=== PATIENT | male | born 1945 | race Caucasian/White ===

== ENCOUNTER 2021-05-12 09:44 | Inpatient (IN) | payer OTHER ==
[2021-05-12] MEDS ORDERED: ACETAMINOPHEN 1000 MG/100 ML VIAL (NON FORMULARY) IVPB ONE ×2 (10:53)
[2021-05-12 11:30] LABS: VENOUS BASE EXCESS -6.9 mmol/L (-2-2); VENOUS O2 SATURATION 19.3 % (70-80); VENOUS PCO2 34.4 mmHg (38-52); VENOUS PH 7.337 (7.310-7.410)
[2021-05-12 11:44] LABS: BASO % 0.2 % (0-2.0); EOS % 0.1 % (0-4.5); HEMATOCRIT 28.8 % (35.4-49); HEMOGLOBIN 9.7 GM/dL (11.7-16.9); LYMPH % 27.9 % (8-40); MCH 30.1 pg (25.7-33.7); MCHC 33.8 g/dl (32.0-35.9); MEAN CELL VOLUME 89.1 fl (80-96); MEAN PLT VOLUME 9.9 fl (7.5-11.1); MONO % 8.2 % (3.8-10.2); NEUT % 63.6 % (42.8-82.8); PLATELET COUNT 79 10^3/uL (134-434); RBC 3.23 M/mm3 (4.00-5.60); RDW 16.3 % (11.9-15.9)
[2021-05-12 11:47] LABS: INR 1.36 (0.83-1.09); PROTHROMBIN TIME (PATIENT) 16.3 SEC (9.7-13.0)
[2021-05-12 11:49] LABS: WHITE BLOOD COUNT 1.7 K/mm3 (4.0-10.0)
[2021-05-12 11:50] LABS: ACTIVATED PTT 31.3 SECONDS (25.2-36.5)
[2021-05-12] MEDS ORDERED: AZITHROMYCIN IVPB 500 MG in DEXTROSE 5%-WATER - 250 ML IVPB ONE (11:51)
[2021-05-12] MEDS ORDERED: CEFTRIAXONE 1 GM in DEXTROSE 5%-WATER - 100 ML IVPB ONE (11:51)
[2021-05-12 12:04] LABS: ALBUMIN 2.2 g/dl (3.4-5.0); BLOOD UREA NITROGEN 61.5 mg/dL (7-18); CALCIUM 7.3 mg/dL (8.5-10.1)
[2021-05-12 12:06] LABS: BILIRUBIN,DIRECT 0.3 mg/dL (0.0-0.2)
[2021-05-12 12:09] LABS: BILIRUBIN,TOTAL 0.6 mg/dL (0.2-1); TOT PROT 4.6 g/dl (6.4-8.2)
[2021-05-12 12:13] LABS: ANISOCYTOSIS 1+; MACROCYTOSIS 1+; PLATELET ESTIMATE DECREASED
[2021-05-12] MEDS ORDERED: CEFTRIAXONE 1 GM/50 ML BAG ONE (12:34)
[2021-05-12 13:12] LABS: MAGNESIUM 2.2 mg/dL (1.8-2.4)
[2021-05-12 13:16] LABS: PHOSPHOROUS 3.5 mg/dL (2.5-4.9)
[2021-05-12 13:20] LABS: N-TERMINAL BNP 14544.6 pg/ml (5-125)
[2021-05-12] MEDS ORDERED: DEXAMETHASONE SOD PHOSPHATE 10 MG/1 ML VIAL IVPUSH ONE (13:37)
[2021-05-12] MEDS ORDERED: AZITHROMYCIN IVPB 500 MG/250 ML BAG IVPB ONE (14:03)
[2021-05-12] MEDS ORDERED: DEXAMETHASONE SOD PHOSPHATE 10 MG/1 ML VIAL ONE (14:06)
[2021-05-12] MEDS: LIPASE/PROTEASE/AMYLASE 36,000 UNIT CAPSULE PO SCH (18:40)
[2021-05-12] MEDS ORDERED: APIXABAN 5 MG TABLET PO SCH (22:00)
[2021-05-12] MEDS ORDERED: ZOLPIDEM TARTRATE 5 MG TABLET PO PRN (22:00)
[2021-05-12] MEDS ORDERED: PATIENT'S OWN MEDICATION (NON-FORMULARY) (Icosapent Ethyl [Vascepa] 1 GM Capsule) PO SCH (22:00)
[2021-05-12] MEDS ORDERED: ASCORBIC ACID 500 MG TABLET (FP) ONE (22:05)
[2021-05-12] MEDS ORDERED: APIXABAN 5 MG TABLET ONE (22:05)
[2021-05-12] MEDS ORDERED: ZINC SULFATE 220 MG CAPSULE (FP) ONE (22:06)
[2021-05-12] MEDS ORDERED: GABAPENTIN 100 MG CAPSULE ONE (22:06)
[2021-05-12] MEDS ORDERED: MECLIZINE HCL 25 MG TABLET (FP) ONE (22:06)
[2021-05-12] MEDS: ASCORBIC ACID 500 MG TABLET (FP) PO SCH (22:15)
[2021-05-12] MEDS: MECLIZINE HCL 25 MG TABLET (FP) PO SCH (22:15)
[2021-05-12] MEDS: GABAPENTIN 100 MG CAPSULE PO SCH (22:15)
[2021-05-12] MEDS: ZINC SULFATE 220 MG CAPSULE (FP) PO SCH (22:15)
[2021-05-12] MEDS: INSULIN SLIDING SCALE (NOVOLOG) 1 VIAL SQ SCH (22:16)
[2021-05-12] MEDS ORDERED: INSULIN SLIDING SCALE (NOVOLOG) 1 VIAL SQ ONE (22:17)
[2021-05-12 22:24] LABS: EPI CELLS 4 /uL (0-25.1); HYALINE CASTS 4 /uL (0-3.1); URINE APPEARANCE CLEAR; URINE BACTERIA 2 /uL (0-1359); URINE BILIRUBIN NEGATIVE (NEGATIVE); URINE COLOR YELLOW; URINE GLUCOSE (UA) NEGATIVE (NEGATIVE); URINE KETONE NEGATIVE (NEGATIVE); URINE LEUK ESTERASE NEGATIVE (NEGATIVE); URINE NITRITE NEGATIVE (NEGATIVE); URINE PROTEIN TRACE (NEGATIVE); URINE UROBILINOGEN 0.2 mg/dL (0.2-1.0); URINE WBC 7 /uL (0-25.8)
[2021-05-12 22:27] LABS: URINE RBC 136.1 /uL (0-23.9)
[2021-05-13] MEDS: BUDESONIDE/FORMETEROL FUMARATE 160/4.5 mcg INHALER IH SCH ×3 (02:19→22:09)
[2021-05-13] MEDS: MEMANTINE HCL 5 MG TABLET (UD) PO SCH ×3 (02:19→22:09)
[2021-05-13] MEDS: GABAPENTIN 100 MG CAPSULE PO SCH ×3 (06:19→22:09)
[2021-05-13] MEDS: INSULIN SLIDING SCALE (NOVOLOG) 1 VIAL SQ SCH ×4 (06:23→22:15)
[2021-05-13 07:34] LABS: BASO % 0.1 % (0-2.0); HEMOGLOBIN 10.1 GM/dL (11.7-16.9); LYMPH % 28.2 % (8-40); MCH 29.8 pg (25.7-33.7); MCHC 33.7 g/dl (32.0-35.9); MEAN CELL VOLUME 88.4 fl (80-96); MEAN PLT VOLUME 9.7 fl (7.5-11.1); MONO % 8.4 % (3.8-10.2); NEUT % 63.3 % (42.8-82.8); PLATELET COUNT 87 10^3/uL (134-434); RBC 3.39 M/mm3 (4.00-5.60); RDW 16.4 % (11.9-15.9)
[2021-05-13 07:39] LABS: WHITE BLOOD COUNT 1.3 K/mm3 (4.0-10.0)
[2021-05-13 08:04] LABS: ALBUMIN 2.1 g/dl (3.4-5.0); BLOOD UREA NITROGEN 64.8 mg/dL (7-18); CALCIUM 7.8 mg/dL (8.5-10.1); MAGNESIUM 2.3 mg/dL (1.8-2.4)
[2021-05-13 08:07] LABS: CREATININE 2.9 mg/dL (0.55-1.3)
[2021-05-13 08:08] LABS: BILIRUBIN,TOTAL 0.4 mg/dL (0.2-1); TOT PROT 4.7 g/dl (6.4-8.2)
[2021-05-13 09:35] LABS: ANISOCYTOSIS 2+
[2021-05-13 09:36] LABS: MACROCYTOSIS 1+; OVALOCYTE 2+
[2021-05-13] MEDS ORDERED: DIGOXIN 0.125 MG TABLET PO SCH (10:00)
[2021-05-13] MEDS ORDERED: CEFEPIME 2 GM in DEXTROSE 5%-WATER 100 ML IVPB SCH (10:00)
[2021-05-13] MEDS ORDERED: ASPIRIN COATED 81 MG TABLET.EC PO SCH (10:00)
[2021-05-13] MEDS ORDERED: POTASSIUM CHLORIDE TABS 10 MEQ TABLET.ER (FP) PO SCH (10:00)
[2021-05-13] MEDS ORDERED: PT OWN MED DRAWER 7, Y5N ONE ×5 (10:25→21:46)
[2021-05-13] MEDS: DEXAMETHASONE SOD PHOSPHATE 10 MG/1 ML VIAL IVPUSH SCH (10:29)
[2021-05-13] MEDS: MECLIZINE HCL 25 MG TABLET (FP) PO SCH ×2 (10:29→22:09)
[2021-05-13] MEDS: ASCORBIC ACID 500 MG TABLET (FP) PO SCH ×2 (10:29→22:09)
[2021-05-13] MEDS: ROSUVASTATIN CA 10 MG TABLET (FP) PO SCH (10:29)
[2021-05-13] MEDS: ZINC SULFATE 220 MG CAPSULE (FP) PO SCH ×2 (10:30→22:09)
[2021-05-13] MEDS: ALLOPURINOL 100 MG TABLET (FP) PO SCH (10:30)
[2021-05-13] MEDS: PANTOPRAZOLE 40 MG TABLET PO SCH (10:30)
[2021-05-13] MEDS: LORATADINE 10 MG TABLET PO SCH (10:30)
[2021-05-13] MEDS: SERTRALINE HCL 25 MG TABLET (FP) PO SCH (10:30)
[2021-05-13] MEDS ORDERED: SODIUM ZIRCONIUM CYCLOSILICATE (LOKELMA) 5 GM PACKET PO SCH (11:00)
[2021-05-13] MEDS: LIPASE/PROTEASE/AMYLASE 36,000 UNIT CAPSULE PO SCH ×3 (12:56→19:07)
[2021-05-13] MEDS: TOLTERODINE TARTRATE LA 2 MG CAP.SR.24H PO SCH (12:58)
[2021-05-13] MEDS: CHOLECALCIFEROL (VIT D3) 5000 UNITS (125 MCG) CAP PO SCH (12:58)
[2021-05-13] MEDS: HEPARIN NA (PORCINE) 5,000 UNITS/ML 1ML VIAL SQ SCH ×2 (14:15→22:09)
[2021-05-14] MEDS: GABAPENTIN 100 MG CAPSULE PO SCH ×3 (06:17→21:26)
[2021-05-14] MEDS: HEPARIN NA (PORCINE) 5,000 UNITS/ML 1ML VIAL SQ SCH ×3 (06:17→21:26)
[2021-05-14] MEDS: INSULIN SLIDING SCALE (NOVOLOG) 1 VIAL SQ SCH ×4 (06:21→21:27)
[2021-05-14 07:58] LABS: BASO % 0.1 % (0-2.0); HEMATOCRIT 30.2 % (35.4-49); HEMOGLOBIN 10.3 GM/dL (11.7-16.9); LYMPH % 19.9 % (8-40); MCH 30.3 pg (25.7-33.7); MCHC 34.2 g/dl (32.0-35.9); MEAN CELL VOLUME 88.7 fl (80-96); MEAN PLT VOLUME 9.7 fl (7.5-11.1); MONO % 5.8 % (3.8-10.2); NEUT % 74.2 % (42.8-82.8); PLATELET COUNT 117 10^3/uL (134-434); RBC 3.41 M/mm3 (4.00-5.60); RDW 16.5 % (11.9-15.9); WHITE BLOOD COUNT 2.5 K/mm3 (4.0-10.0)
[2021-05-14 08:14] LABS: CALCIUM 7.8 mg/dL (8.5-10.1)
[2021-05-14 08:15] LABS: ALBUMIN 2.1 g/dl (3.4-5.0); BLOOD UREA NITROGEN 76.8 mg/dL (7-18); MAGNESIUM 2.5 mg/dL (1.8-2.4)
[2021-05-14 08:18] LABS: CREATININE 3.1 mg/dL (0.55-1.3)
[2021-05-14 08:19] LABS: BILIRUBIN,TOTAL 0.5 mg/dL (0.2-1); TOT PROT 4.8 g/dl (6.4-8.2)
[2021-05-14] MEDS ORDERED: CEFEPIME 2 GM in DEXTROSE 5%-WATER 100 ML IVPB SCH (10:00)
[2021-05-14] MEDS ORDERED: CEFEPIME 1 GM in DEXTROSE 5%-WATER - 100 ML IVPB SCH (10:00)
[2021-05-14] MEDS: BUDESONIDE/FORMETEROL FUMARATE 160/4.5 mcg INHALER IH SCH ×2 (10:30→21:44)
[2021-05-14] MEDS ORDERED: SODIUM ZIRCONIUM CYCLOSILICATE (LOKELMA) 5 GM PACKET PO SCH (10:45)
[2021-05-14] MEDS ORDERED: SODIUM CHLORIDE 0.45% 1,000 ML IV SCH (10:45)
[2021-05-14] MEDS ORDERED: PT OWN MED DRAWER 7, Y5N ONE ×6 (10:57→21:21)
[2021-05-14] MEDS: LIPASE/PROTEASE/AMYLASE 36,000 UNIT CAPSULE PO SCH ×3 (11:02→18:40)
[2021-05-14] MEDS: SODIUM BICARBONATE 650 MG TABLET PO SCH ×2 (11:02→21:26)
[2021-05-14] MEDS: PANTOPRAZOLE 40 MG TABLET PO SCH (11:02)
[2021-05-14] MEDS: SERTRALINE HCL 25 MG TABLET (FP) PO SCH (11:02)
[2021-05-14] MEDS: ASCORBIC ACID 500 MG TABLET (FP) PO SCH ×2 (11:02→21:26)
[2021-05-14] MEDS: TAMSULOSIN HCL 0.4 MG CAP PO SCH (11:02)
[2021-05-14] MEDS: ZINC SULFATE 220 MG CAPSULE (FP) PO SCH ×2 (11:02→21:26)
[2021-05-14] MEDS: ALLOPURINOL 100 MG TABLET (FP) PO SCH (11:02)
[2021-05-14] MEDS: ROSUVASTATIN CA 10 MG TABLET (FP) PO SCH (11:02)
[2021-05-14] MEDS: LORATADINE 10 MG TABLET PO SCH (11:03)
[2021-05-14] MEDS: MECLIZINE HCL 25 MG TABLET (FP) PO SCH ×2 (11:03→21:26)
[2021-05-14] MEDS: SACUBITRIL/VALSARTAN 24 MG-26 MG TABLET PO SCH ×2 (11:03→21:26)
[2021-05-14] MEDS: MEMANTINE HCL 5 MG TABLET (UD) PO SCH ×2 (11:03→21:27)
[2021-05-14] MEDS: TOLTERODINE TARTRATE LA 2 MG CAP.SR.24H PO SCH (11:03)
[2021-05-14] MEDS: DEXAMETHASONE SOD PHOSPHATE 10 MG/1 ML VIAL IVPUSH SCH (11:03)
[2021-05-14] MEDS: CHOLECALCIFEROL (VIT D3) 5000 UNITS (125 MCG) CAP PO SCH (11:04)
[2021-05-14] MEDS ORDERED: CEFEPIME HCL 1 GM VIAL (RESTRICTED TO ID) ONE (21:17)
[2021-05-14] MEDS ORDERED: DEXTROSE 5%-WATER 100 ML IVPB ONE (21:17)
[2021-05-14] MEDS: CEFEPIME 1 GM in DEXTROSE 5%-WATER 100 ML IVPB SCH (21:25)
[2021-05-15] MEDS: HEPARIN NA (PORCINE) 5,000 UNITS/ML 1ML VIAL SQ SCH ×3 (06:01→21:28)
[2021-05-15] MEDS: INSULIN SLIDING SCALE (NOVOLOG) 1 VIAL SQ SCH ×4 (06:02→21:28)
[2021-05-15] MEDS: GABAPENTIN 100 MG CAPSULE PO SCH ×3 (06:02→21:28)
[2021-05-15 08:01] LABS: BASO % 0.1 % (0-2.0); HEMATOCRIT 30.6 % (35.4-49); HEMOGLOBIN 10.2 GM/dL (11.7-16.9); MCH 29.5 pg (25.7-33.7); MCHC 33.3 g/dl (32.0-35.9); MEAN CELL VOLUME 88.6 fl (80-96); MEAN PLT VOLUME 9.3 fl (7.5-11.1); MONO % 4.8 % (3.8-10.2); NEUT % 77.1 % (42.8-82.8); PLATELET COUNT 132 10^3/uL (134-434); RBC 3.46 M/mm3 (4.00-5.60); RDW 16.5 % (11.9-15.9); WHITE BLOOD COUNT 3.2 K/mm3 (4.0-10.0)
[2021-05-15 08:22] LABS: CALCIUM 7.5 mg/dL (8.5-10.1)
[2021-05-15 08:23] LABS: MAGNESIUM 2.5 mg/dL (1.8-2.4)
[2021-05-15 08:24] LABS: BLOOD UREA NITROGEN 80.7 mg/dL (7-18)
[2021-05-15 08:28] LABS: BILIRUBIN,TOTAL 0.4 mg/dL (0.2-1); TOT PROT 4.7 g/dl (6.4-8.2)
[2021-05-15] MEDS ORDERED: PT OWN MED DRAWER 7, Y5N ONE ×3 (09:32→21:11)
[2021-05-15] MEDS ORDERED: DEXTROSE 5%-WATER 100 ML IVPB ONE (09:32)
[2021-05-15] MEDS ORDERED: CEFEPIME HCL 1 GM VIAL (RESTRICTED TO ID) ONE (09:32)
[2021-05-15] MEDS: DEXAMETHASONE SOD PHOSPHATE 10 MG/1 ML VIAL IVPUSH SCH (09:37)
[2021-05-15] MEDS: MECLIZINE HCL 25 MG TABLET (FP) PO SCH ×2 (09:38→21:28)
[2021-05-15] MEDS: ALLOPURINOL 100 MG TABLET (FP) PO SCH (09:38)
[2021-05-15] MEDS: CEFEPIME 1 GM in DEXTROSE 5%-WATER 100 ML IVPB SCH (09:38)
[2021-05-15] MEDS: SACUBITRIL/VALSARTAN 24 MG-26 MG TABLET PO SCH ×2 (09:38→21:27)
[2021-05-15] MEDS: PANTOPRAZOLE 40 MG TABLET PO SCH (09:38)
[2021-05-15] MEDS: TAMSULOSIN HCL 0.4 MG CAP PO SCH (09:38)
[2021-05-15] MEDS: ZINC SULFATE 220 MG CAPSULE (FP) PO SCH ×2 (09:38→21:27)
[2021-05-15] MEDS: SODIUM BICARBONATE 650 MG TABLET PO SCH ×3 (09:38→21:28)
[2021-05-15] MEDS: LORATADINE 10 MG TABLET PO SCH (09:39)
[2021-05-15] MEDS: SERTRALINE HCL 25 MG TABLET (FP) PO SCH (09:39)
[2021-05-15] MEDS: ROSUVASTATIN CA 10 MG TABLET (FP) PO SCH (09:39)
[2021-05-15] MEDS: ASCORBIC ACID 500 MG TABLET (FP) PO SCH ×2 (09:39→21:27)
[2021-05-15] MEDS: LIPASE/PROTEASE/AMYLASE 36,000 UNIT CAPSULE PO SCH ×3 (09:39→16:47)
[2021-05-15] MEDS: BUDESONIDE/FORMETEROL FUMARATE 160/4.5 mcg INHALER IH SCH ×2 (09:40→21:29)
[2021-05-15] MEDS: SODIUM ZIRCONIUM CYCLOSILICATE (LOKELMA) 10 GM PACKET PO SCH (09:40)
[2021-05-15] MEDS: MEMANTINE HCL 5 MG TABLET (UD) PO SCH ×2 (09:40→23:21)
[2021-05-15] MEDS: TOLTERODINE TARTRATE LA 2 MG CAP.SR.24H PO SCH (09:40)
[2021-05-15] MEDS: CHOLECALCIFEROL (VIT D3) 5000 UNITS (125 MCG) CAP PO SCH (09:41)
[2021-05-15] MEDS: TRIAMCINOLONE ACET 0.1% CREAM 80 GM TUBE TP SCH (11:21)
[2021-05-16] MEDS: HEPARIN NA (PORCINE) 5,000 UNITS/ML 1ML VIAL SQ SCH ×3 (05:51→21:26)
[2021-05-16] MEDS: SODIUM BICARBONATE 650 MG TABLET PO SCH ×3 (05:51→21:39)
[2021-05-16] MEDS: GABAPENTIN 100 MG CAPSULE PO SCH ×3 (05:51→21:26)
[2021-05-16] MEDS: INSULIN SLIDING SCALE (NOVOLOG) 1 VIAL SQ SCH ×4 (06:08→21:26)
[2021-05-16 08:29] LABS: BASO % 0.1 % (0-2.0); HEMATOCRIT 29.6 % (35.4-49); HEMOGLOBIN 9.9 GM/dL (11.7-16.9); LYMPH % 15.7 % (8-40); MCH 29.5 pg (25.7-33.7); MCHC 33.6 g/dl (32.0-35.9); MEAN CELL VOLUME 87.8 fl (80-96); MEAN PLT VOLUME 9.4 fl (7.5-11.1); MONO % 3.9 % (3.8-10.2); NEUT % 80.3 % (42.8-82.8); PLATELET COUNT 133 10^3/uL (134-434); RBC 3.37 M/mm3 (4.00-5.60); RDW 16.2 % (11.9-15.9); WHITE BLOOD COUNT 3.2 K/mm3 (4.0-10.0)
[2021-05-16 08:50] LABS: CALCIUM 7.6 mg/dL (8.5-10.1)
[2021-05-16 08:51] LABS: BLOOD UREA NITROGEN 85.4 mg/dL (7-18); MAGNESIUM 2.6 mg/dL (1.8-2.4)
[2021-05-16 08:54] LABS: CREATININE 2.8 mg/dL (0.55-1.3)
[2021-05-16 08:55] LABS: BILIRUBIN,TOTAL 0.6 mg/dL (0.2-1)
[2021-05-16 08:56] LABS: TOT PROT 4.7 g/dl (6.4-8.2)
[2021-05-16] MEDS: DEXAMETHASONE SOD PHOSPHATE 10 MG/1 ML VIAL IVPUSH SCH (10:13)
[2021-05-16] MEDS: ROSUVASTATIN CA 10 MG TABLET (FP) PO SCH (10:14)
[2021-05-16] MEDS: SACUBITRIL/VALSARTAN 24 MG-26 MG TABLET PO SCH ×2 (10:14→21:25)
[2021-05-16] MEDS: ALLOPURINOL 100 MG TABLET (FP) PO SCH (10:14)
[2021-05-16] MEDS: TAMSULOSIN HCL 0.4 MG CAP PO SCH (10:14)
[2021-05-16] MEDS: LORATADINE 10 MG TABLET PO SCH (10:14)
[2021-05-16] MEDS: MECLIZINE HCL 25 MG TABLET (FP) PO SCH ×2 (10:14→21:26)
[2021-05-16] MEDS: SERTRALINE HCL 25 MG TABLET (FP) PO SCH (10:14)
[2021-05-16] MEDS: SODIUM ZIRCONIUM CYCLOSILICATE (LOKELMA) 10 GM PACKET PO SCH (10:14)
[2021-05-16] MEDS: PANTOPRAZOLE 40 MG TABLET PO SCH (10:14)
[2021-05-16] MEDS: ASCORBIC ACID 500 MG TABLET (FP) PO SCH ×2 (10:14→21:26)
[2021-05-16] MEDS: LIPASE/PROTEASE/AMYLASE 36,000 UNIT CAPSULE PO SCH ×3 (10:15→17:53)
[2021-05-16] MEDS: TOLTERODINE TARTRATE LA 2 MG CAP.SR.24H PO SCH (10:15)
[2021-05-16] MEDS: CHOLECALCIFEROL (VIT D3) 5000 UNITS (125 MCG) CAP PO SCH (10:15)
[2021-05-16] MEDS: MEMANTINE HCL 5 MG TABLET (UD) PO SCH ×2 (10:15→21:26)
[2021-05-16] MEDS: ZINC SULFATE 220 MG CAPSULE (FP) PO SCH ×2 (12:00→21:26)
[2021-05-16] MEDS: BUDESONIDE/FORMETEROL FUMARATE 160/4.5 mcg INHALER IH SCH ×2 (12:01→21:39)
[2021-05-16] MEDS ORDERED: PT OWN MED DRAWER 7, Y5N ONE ×2 (12:16→21:24)
[2021-05-17] MEDS: HEPARIN NA (PORCINE) 5,000 UNITS/ML 1ML VIAL SQ SCH ×3 (06:27→22:49)
[2021-05-17] MEDS: SODIUM BICARBONATE 650 MG TABLET PO SCH ×3 (06:27→22:48)
[2021-05-17] MEDS: GABAPENTIN 100 MG CAPSULE PO SCH ×3 (06:27→22:47)
[2021-05-17] MEDS: INSULIN SLIDING SCALE (NOVOLOG) 1 VIAL SQ SCH ×4 (06:28→22:46)
[2021-05-17 08:43] LABS: BASO % 0.1 % (0-2.0); HEMATOCRIT 29.8 % (35.4-49); HEMOGLOBIN 10.2 GM/dL (11.7-16.9); LYMPH % 13.1 % (8-40); MCH 30.1 pg (25.7-33.7); MCHC 34.2 g/dl (32.0-35.9); MEAN PLT VOLUME 9.2 fl (7.5-11.1); MONO % 4.2 % (3.8-10.2); NEUT % 82.6 % (42.8-82.8); PLATELET COUNT 147 10^3/uL (134-434); RBC 3.38 M/mm3 (4.00-5.60); RDW 15.8 % (11.9-15.9); WHITE BLOOD COUNT 3.8 K/mm3 (4.0-10.0)
[2021-05-17] MEDS ORDERED: PT OWN MED DRAWER 7, Y5N ONE ×2 (09:11→22:21)
[2021-05-17 09:13] LABS: ALBUMIN 1.9 g/dl (3.4-5.0); BLOOD UREA NITROGEN 89.5 mg/dL (7-18); CALCIUM 7.5 mg/dL (8.5-10.1)
[2021-05-17 09:14] LABS: MAGNESIUM 2.6 mg/dL (1.8-2.4)
[2021-05-17 09:16] LABS: CREATININE 2.8 mg/dL (0.55-1.3)
[2021-05-17] MEDS: LORATADINE 10 MG TABLET PO SCH (09:16)
[2021-05-17] MEDS: SACUBITRIL/VALSARTAN 24 MG-26 MG TABLET PO SCH (09:16)
[2021-05-17] MEDS: ASCORBIC ACID 500 MG TABLET (FP) PO SCH ×2 (09:16→22:47)
[2021-05-17] MEDS: TAMSULOSIN HCL 0.4 MG CAP PO SCH (09:16)
[2021-05-17] MEDS: ROSUVASTATIN CA 10 MG TABLET (FP) PO SCH (09:16)
[2021-05-17] MEDS: ALLOPURINOL 100 MG TABLET (FP) PO SCH (09:16)
[2021-05-17] MEDS: SERTRALINE HCL 25 MG TABLET (FP) PO SCH (09:16)
[2021-05-17] MEDS: PANTOPRAZOLE 40 MG TABLET PO SCH (09:16)
[2021-05-17] MEDS: metoPROLOL SUCCINATE 25 MG TAB.SR.24H (FP) PO SCH (09:16)
[2021-05-17] MEDS: ZINC SULFATE 220 MG CAPSULE (FP) PO SCH ×2 (09:16→22:48)
[2021-05-17 09:17] LABS: BILIRUBIN,TOTAL 0.7 mg/dL (0.2-1); TOT PROT 4.5 g/dl (6.4-8.2)
[2021-05-17] MEDS: MEMANTINE HCL 5 MG TABLET (UD) PO SCH ×2 (09:17→22:48)
[2021-05-17] MEDS: DEXAMETHASONE SOD PHOSPHATE 10 MG/1 ML VIAL IVPUSH SCH (09:17)
[2021-05-17] MEDS: MECLIZINE HCL 25 MG TABLET (FP) PO SCH ×2 (09:17→22:48)
[2021-05-17] MEDS: SODIUM ZIRCONIUM CYCLOSILICATE (LOKELMA) 10 GM PACKET PO SCH (09:17)
[2021-05-17] MEDS: LIPASE/PROTEASE/AMYLASE 36,000 UNIT CAPSULE PO SCH ×3 (09:18→17:40)
[2021-05-17] MEDS: TOLTERODINE TARTRATE LA 2 MG CAP.SR.24H PO SCH (09:18)
[2021-05-17] MEDS: BUDESONIDE/FORMETEROL FUMARATE 160/4.5 mcg INHALER IH SCH ×2 (09:19→22:47)
[2021-05-17] MEDS ORDERED: TOCILIZUMAB (ACTEMRA) 200 MG/10 ML VIAL IVPB ONE (10:04)
[2021-05-17] MEDS: CHOLECALCIFEROL (VIT D3) 5000 UNITS (125 MCG) CAP PO SCH (10:34)
[2021-05-17] MEDS ORDERED: SODIUM CHLORIDE IVPB ONE (11:30)
[2021-05-17] MEDS ORDERED: TOCILIZUMAB IVPB ONE (11:30)
[2021-05-18] MEDS: HEPARIN NA (PORCINE) 5,000 UNITS/ML 1ML VIAL SQ SCH ×3 (07:02→22:00)
[2021-05-18] MEDS: SODIUM BICARBONATE 650 MG TABLET PO SCH ×3 (07:02→22:00)
[2021-05-18] MEDS: GABAPENTIN 100 MG CAPSULE PO SCH ×3 (07:02→22:00)
[2021-05-18] MEDS: INSULIN SLIDING SCALE (NOVOLOG) 1 VIAL SQ SCH ×4 (07:03→22:14)
[2021-05-18 08:02] LABS: HEMATOCRIT 28.3 % (35.4-49); HEMOGLOBIN 9.7 GM/dL (11.7-16.9); MCH 29.8 pg (25.7-33.7); MCHC 34.2 g/dl (32.0-35.9); MEAN CELL VOLUME 87.1 fl (80-96); MEAN PLT VOLUME 9.2 fl (7.5-11.1); MONO % 3.3 % (3.8-10.2); NEUT % 86.7 % (42.8-82.8); PLATELET COUNT 160 10^3/uL (134-434); RBC 3.25 M/mm3 (4.00-5.60); RDW 16.3 % (11.9-15.9); WHITE BLOOD COUNT 4.8 K/mm3 (4.0-10.0)
[2021-05-18 09:01] LABS: CALCIUM 7.7 mg/dL (8.5-10.1)
[2021-05-18 09:02] LABS: ALBUMIN 1.9 g/dl (3.4-5.0); BLOOD UREA NITROGEN 101.9 mg/dL (7-18); MAGNESIUM 3.1 mg/dL (1.8-2.4)
[2021-05-18 09:05] LABS: CREATININE 2.9 mg/dL (0.55-1.3)
[2021-05-18 09:06] LABS: BILIRUBIN,TOTAL 0.6 mg/dL (0.2-1); TOT PROT 4.6 g/dl (6.4-8.2)
[2021-05-18] MEDS ORDERED: PT OWN MED DRAWER 7, Y5N ONE ×2 (09:26→13:17)
[2021-05-18] MEDS: TAMSULOSIN HCL 0.4 MG CAP PO SCH (09:37)
[2021-05-18] MEDS: LIPASE/PROTEASE/AMYLASE 36,000 UNIT CAPSULE PO SCH ×3 (09:37→17:06)
[2021-05-18] MEDS: PANTOPRAZOLE 40 MG TABLET PO SCH (09:39)
[2021-05-18] MEDS: LORATADINE 10 MG TABLET PO SCH (09:39)
[2021-05-18] MEDS: SERTRALINE HCL 25 MG TABLET (FP) PO SCH (09:39)
[2021-05-18] MEDS: DEXAMETHASONE SOD PHOSPHATE 10 MG/1 ML VIAL IVPUSH SCH (09:39)
[2021-05-18] MEDS: ROSUVASTATIN CA 10 MG TABLET (FP) PO SCH (09:39)
[2021-05-18] MEDS: ASCORBIC ACID 500 MG TABLET (FP) PO SCH ×2 (09:39→22:00)
[2021-05-18] MEDS: ALLOPURINOL 100 MG TABLET (FP) PO SCH (09:39)
[2021-05-18] MEDS: ZINC SULFATE 220 MG CAPSULE (FP) PO SCH ×2 (09:39→22:00)
[2021-05-18] MEDS: MECLIZINE HCL 25 MG TABLET (FP) PO SCH ×2 (09:39→22:00)
[2021-05-18] MEDS: metoPROLOL SUCCINATE 25 MG TAB.SR.24H (FP) PO SCH (09:39)
[2021-05-18] MEDS: SODIUM ZIRCONIUM CYCLOSILICATE (LOKELMA) 10 GM PACKET PO SCH (09:41)
[2021-05-18] MEDS: TOLTERODINE TARTRATE LA 2 MG CAP.SR.24H PO SCH (09:41)
[2021-05-18] MEDS: MEMANTINE HCL 5 MG TABLET (UD) PO SCH ×2 (09:41→22:02)
[2021-05-18] MEDS: CHOLECALCIFEROL (VIT D3) 5000 UNITS (125 MCG) CAP PO SCH (09:42)
[2021-05-18] MEDS: BUDESONIDE/FORMETEROL FUMARATE 160/4.5 mcg INHALER IH SCH ×2 (09:42→22:01)
[2021-05-18] MEDS: SACUBITRIL/VALSARTAN 24 MG-26 MG TABLET PO SCH (10:24)
[2021-05-18] MEDS: TRIAMCINOLONE ACET 0.1% CREAM 80 GM TUBE TP SCH (10:24)
[2021-05-18] MEDS ORDERED: SODIUM ZIRCONIUM CYCLOSILICATE (LOKELMA) 10 GM PACKET PO SCH (12:00)
[2021-05-19] MEDS: HEPARIN NA (PORCINE) 5,000 UNITS/ML 1ML VIAL SQ SCH ×2 (06:48→14:01)
[2021-05-19] MEDS: GABAPENTIN 100 MG CAPSULE PO SCH ×3 (06:48→21:49)
[2021-05-19] MEDS: SODIUM BICARBONATE 650 MG TABLET PO SCH ×3 (06:49→21:48)
[2021-05-19] MEDS: INSULIN SLIDING SCALE (NOVOLOG) 1 VIAL SQ SCH ×4 (06:56→22:03)
[2021-05-19] MEDS: ALLOPURINOL 100 MG TABLET (FP) PO SCH (10:15)
[2021-05-19] MEDS: PANTOPRAZOLE 40 MG TABLET PO SCH (10:15)
[2021-05-19] MEDS: metoPROLOL SUCCINATE 25 MG TAB.SR.24H (FP) PO SCH (10:15)
[2021-05-19] MEDS: TAMSULOSIN HCL 0.4 MG CAP PO SCH (10:15)
[2021-05-19] MEDS: ASCORBIC ACID 500 MG TABLET (FP) PO SCH ×2 (10:15→21:48)
[2021-05-19] MEDS: SERTRALINE HCL 25 MG TABLET (FP) PO SCH (10:15)
[2021-05-19] MEDS: ZINC SULFATE 220 MG CAPSULE (FP) PO SCH ×2 (10:15→21:48)
[2021-05-19] MEDS: SODIUM ZIRCONIUM CYCLOSILICATE (LOKELMA) 10 GM PACKET PO SCH (10:15)
[2021-05-19] MEDS: MECLIZINE HCL 25 MG TABLET (FP) PO SCH ×2 (10:15→21:48)
[2021-05-19] MEDS: LORATADINE 10 MG TABLET PO SCH (10:15)
[2021-05-19] MEDS: DEXAMETHASONE SOD PHOSPHATE 10 MG/1 ML VIAL IVPUSH SCH (10:15)
[2021-05-19] MEDS: ROSUVASTATIN CA 10 MG TABLET (FP) PO SCH ×2 (10:15→21:48)
[2021-05-19] MEDS: TOLTERODINE TARTRATE LA 2 MG CAP.SR.24H PO SCH (10:16)
[2021-05-19] MEDS: LIPASE/PROTEASE/AMYLASE 36,000 UNIT CAPSULE PO SCH ×3 (10:16→17:37)
[2021-05-19] MEDS: MEMANTINE HCL 5 MG TABLET (UD) PO SCH ×2 (10:16→21:48)
[2021-05-19] MEDS: CHOLECALCIFEROL (VIT D3) 5000 UNITS (125 MCG) CAP PO SCH (10:16)
[2021-05-19] MEDS: BUDESONIDE/FORMETEROL FUMARATE 160/4.5 mcg INHALER IH SCH ×2 (10:16→21:49)
[2021-05-19] MEDS ORDERED: PT OWN MED DRAWER 7, Y5N ONE (18:39)
[2021-05-19 19:15] LABS: CHLORIDE 108 mmol/L (98-107); SODIUM 138 mmol/L (136-145)
[2021-05-19 19:17] LABS: CALCIUM 7.9 mg/dL (8.5-10.1)
[2021-05-19 19:18] LABS: ALBUMIN 2.1 g/dl (3.4-5.0); ANION GAP 9 MMOL/L (8-16); CO2 21 mmol/L (21-32); GLUCOSE,RANDOM 153 mg/dL (74-106)
[2021-05-19 19:21] LABS: CREATININE 2.9 mg/dL (0.55-1.3); SGOT/AST 27 U/L (15-37); SGPT/ALT 23 U/L (13-61)
[2021-05-19 19:23] LABS: BILIRUBIN,TOTAL 0.6 mg/dL (0.2-1); TOT PROT 4.6 g/dl (6.4-8.2)
[2021-05-19 19:24] LABS: ALK PHOS 94 U/L (45-117)
[2021-05-19 19:25] LABS: BLOOD UREA NITROGEN 114.6 mg/dL (7-18)
[2021-05-19 19:34] LABS: ARTERIAL BLD GAS O2 SATURATION 99.1 % (95-98); ARTERIAL BLOOD GAS BASE EXCESS -4.9 mmol/L (-2-2); ARTERIAL BLOOD GAS PO2 155.3 mmHg (80-100); ARTERIAL BLOOD GAS pH 7.429 (7.350-7.450)
[2021-05-19 19:36] LABS: ALLENS TEST POSITIVE; PT'S TEMP NO
[2021-05-19] MEDS: APIXABAN 2.5 MG TABLET PO SCH (21:48)
[2021-05-19] MEDS: SACUBITRIL/VALSARTAN 24 MG-26 MG TABLET PO SCH (21:48)
[2021-05-19] MEDS: CHLORHEXIDINE GLUCONATE 4% CLEANSER FOR DECOLONIZATION TP SCH (21:49)
[2021-05-19] MEDS: MUPIROCIN 2% TOPICAL OINTMENT FOR DECOLONIZATION NS SCH (21:49)
[2021-05-20] MEDS: GABAPENTIN 100 MG CAPSULE PO SCH ×3 (05:35→21:34)
[2021-05-20] MEDS: SODIUM BICARBONATE 650 MG TABLET PO SCH ×3 (05:35→21:31)
[2021-05-20] MEDS: INSULIN SLIDING SCALE (NOVOLOG) 1 VIAL SQ SCH ×4 (06:59→22:01)
[2021-05-20 07:04] LABS: BASO % 0.3 % (0-2.0); EOS % 1.2 % (0-4.5); HEMATOCRIT 30.2 % (35.4-49); HEMOGLOBIN 10.3 GM/dL (11.7-16.9); LYMPH % 8.3 % (8-40); MCH 29.9 pg (25.7-33.7); MEAN CELL VOLUME 87.8 fl (80-96); MEAN PLT VOLUME 9.4 fl (7.5-11.1); MONO % 2.6 % (3.8-10.2); NEUT % 87.6 % (42.8-82.8); PLATELET COUNT 135 10^3/uL (134-434); RBC 3.44 M/mm3 (4.00-5.60); RDW 16.5 % (11.9-15.9); WHITE BLOOD COUNT 2.8 K/mm3 (4.0-10.0)
[2021-05-20 07:20] LABS: CHLORIDE 110 mmol/L (98-107); SODIUM 139 mmol/L (136-145)
[2021-05-20 07:23] LABS: ANION GAP 10 MMOL/L (8-16); CALCIUM 7.6 mg/dL (8.5-10.1); CO2 20 mmol/L (21-32)
[2021-05-20 07:24] LABS: GLUCOSE,RANDOM 86 mg/dL (74-106)
[2021-05-20 07:27] LABS: CREATININE 2.9 mg/dL (0.55-1.3); SGOT/AST 34 U/L (15-37); SGPT/ALT 21 U/L (13-61)
[2021-05-20 07:28] LABS: BILIRUBIN,TOTAL 0.7 mg/dL (0.2-1); LDH 530 U/L (87-246); TOT PROT 4.4 g/dl (6.4-8.2)
[2021-05-20 07:30] LABS: ALK PHOS 91 U/L (45-117)
[2021-05-20 07:34] LABS: BLOOD UREA NITROGEN 119.5 mg/dL (7-18)
[2021-05-20] MEDS ORDERED: guaiFENesin/CODEINE 5 ML UNIT-DOSE CUPS PO PRN (08:00)
[2021-05-20] MEDS ORDERED: PT OWN MED DRAWER 7, Y5N ONE ×3 (08:01→21:24)
[2021-05-20] MEDS: LIPASE/PROTEASE/AMYLASE 36,000 UNIT CAPSULE PO SCH ×3 (08:34→17:30)
[2021-05-20] MEDS: TAMSULOSIN HCL 0.4 MG CAP PO SCH (08:34)
[2021-05-20] MEDS: MUPIROCIN 2% TOPICAL OINTMENT FOR DECOLONIZATION NS SCH ×2 (09:53→21:30)
[2021-05-20] MEDS: MECLIZINE HCL 25 MG TABLET (FP) PO SCH ×2 (09:53→21:31)
[2021-05-20] MEDS: TOLTERODINE TARTRATE LA 2 MG CAP.SR.24H PO SCH (09:54)
[2021-05-20] MEDS: LORATADINE 10 MG TABLET PO SCH (09:54)
[2021-05-20] MEDS: DEXAMETHASONE SOD PHOSPHATE 10 MG/1 ML VIAL IVPUSH SCH (09:54)
[2021-05-20] MEDS: APIXABAN 2.5 MG TABLET PO SCH ×2 (09:54→21:31)
[2021-05-20] MEDS: BUDESONIDE/FORMETEROL FUMARATE 160/4.5 mcg INHALER IH SCH ×2 (09:55→21:34)
[2021-05-20] MEDS: ZINC SULFATE 220 MG CAPSULE (FP) PO SCH ×2 (09:55→21:31)
[2021-05-20] MEDS: MEMANTINE HCL 5 MG TABLET (UD) PO SCH ×2 (09:55→21:34)
[2021-05-20] MEDS: TRIAMCINOLONE ACET 0.1% CREAM 80 GM TUBE TP SCH (09:55)
[2021-05-20] MEDS: PANTOPRAZOLE 40 MG TABLET PO SCH (09:55)
[2021-05-20] MEDS: ASCORBIC ACID 500 MG TABLET (FP) PO SCH ×2 (09:56→21:30)
[2021-05-20] MEDS: SERTRALINE HCL 25 MG TABLET (FP) PO SCH (09:56)
[2021-05-20] MEDS: CHOLECALCIFEROL (VIT D3) 5000 UNITS (125 MCG) CAP PO SCH (09:56)
[2021-05-20] MEDS: ALLOPURINOL 100 MG TABLET (FP) PO SCH (09:56)
[2021-05-20] MEDS ORDERED: SODIUM ZIRCONIUM CYCLOSILICATE (LOKELMA) 10 GM PACKET PO SCH (10:00)
[2021-05-20] MEDS ORDERED: ASPIRIN COATED 81 MG TABLET.EC PO SCH (10:00)
[2021-05-20] MEDS ORDERED: metoPROLOL SUCCINATE 25 MG TAB.SR.24H (FP) PO SCH (10:00)
[2021-05-20] MEDS: ALBUTEROL SO4 HFA INHALER IH SCH ×4 (11:40→21:32)
[2021-05-20] MEDS: SODIUM ZIRCONIUM CYCLOSILICATE (LOKELMA) 5 GM PACKET PO SCH (15:30)
[2021-05-20] MEDS: AMINO ACIDS 4.25%/D5W 1,000 ML IV SCH (17:51)
[2021-05-20] MEDS: ROSUVASTATIN CA 10 MG TABLET (FP) PO SCH (21:30)
[2021-05-20] MEDS: CHLORHEXIDINE GLUCONATE 4% CLEANSER FOR DECOLONIZATION TP SCH (21:31)
[2021-05-21] MEDS: GABAPENTIN 100 MG CAPSULE PO SCH ×3 (06:45→21:07)
[2021-05-21] MEDS: SODIUM BICARBONATE 650 MG TABLET PO SCH ×3 (06:45→21:07)
[2021-05-21] MEDS: INSULIN SLIDING SCALE (NOVOLOG) 1 VIAL SQ SCH ×3 (06:46→17:52)
[2021-05-21 07:49] LABS: EOS % 0.2 % (0-4.5); HEMATOCRIT 29.6 % (35.4-49); HEMOGLOBIN 10.1 GM/dL (11.7-16.9); LYMPH % 8.5 % (8-40); MCHC 34.1 g/dl (32.0-35.9); MEAN CELL VOLUME 87.9 fl (80-96); MEAN PLT VOLUME 10.1 fl (7.5-11.1); MONO % 3.1 % (3.8-10.2); NEUT % 88.2 % (42.8-82.8); PLATELET COUNT 119 10^3/uL (134-434); RBC 3.37 M/mm3 (4.00-5.60); RDW 16.3 % (11.9-15.9); WHITE BLOOD COUNT 3.4 K/mm3 (4.0-10.0)
[2021-05-21 08:03] LABS: CHLORIDE 108 mmol/L (98-107); SODIUM 138 mmol/L (136-145)
[2021-05-21 08:05] LABS: ANION GAP 12 MMOL/L (8-16); CALCIUM 7.6 mg/dL (8.5-10.1); CO2 18 mmol/L (21-32); GLUCOSE,RANDOM 177 mg/dL (74-106)
[2021-05-21 08:06] LABS: ALBUMIN 2.1 g/dl (3.4-5.0); MAGNESIUM 3.1 mg/dL (1.8-2.4)
[2021-05-21 08:08] LABS: CREATININE 2.8 mg/dL (0.55-1.3); SGOT/AST 37 U/L (15-37); SGPT/ALT 24 U/L (13-61)
[2021-05-21 08:10] LABS: BILIRUBIN,TOTAL 0.6 mg/dL (0.2-1); LDH 518 U/L (87-246); TOT PROT 4.6 g/dl (6.4-8.2)
[2021-05-21 08:11] LABS: ALK PHOS 92 U/L (45-117)
[2021-05-21 08:22] LABS: BLOOD UREA NITROGEN 125.6 mg/dL (7-18)
[2021-05-21 09:10] LABS: PHOSPHOROUS 4.7 mg/dL (2.5-4.9)
[2021-05-21] MEDS ORDERED: metoPROLOL SUCCINATE 25 MG TAB.SR.24H (FP) PO SCH (10:00)
[2021-05-21] MEDS: TAMSULOSIN HCL 0.4 MG CAP PO SCH (10:15)
[2021-05-21] MEDS: MECLIZINE HCL 25 MG TABLET (FP) PO SCH ×2 (10:15→21:06)
[2021-05-21] MEDS: LIPASE/PROTEASE/AMYLASE 36,000 UNIT CAPSULE PO SCH ×3 (10:15→17:28)
[2021-05-21] MEDS: TOLTERODINE TARTRATE LA 2 MG CAP.SR.24H PO SCH (10:15)
[2021-05-21] MEDS: DEXAMETHASONE SOD PHOSPHATE 10 MG/1 ML VIAL IVPUSH SCH (10:15)
[2021-05-21] MEDS: MUPIROCIN 2% TOPICAL OINTMENT FOR DECOLONIZATION NS SCH ×2 (10:15→21:06)
[2021-05-21] MEDS: LORATADINE 10 MG TABLET PO SCH (10:15)
[2021-05-21] MEDS: ALBUTEROL SO4 HFA INHALER IH SCH ×3 (10:15→17:24)
[2021-05-21] MEDS: MEMANTINE HCL 5 MG TABLET (UD) PO SCH ×2 (10:16→21:07)
[2021-05-21] MEDS: ASCORBIC ACID 500 MG TABLET (FP) PO SCH ×2 (10:16→21:08)
[2021-05-21] MEDS: ZINC SULFATE 220 MG CAPSULE (FP) PO SCH ×2 (10:16→21:07)
[2021-05-21] MEDS: BUDESONIDE/FORMETEROL FUMARATE 160/4.5 mcg INHALER IH SCH ×2 (10:16→21:08)
[2021-05-21] MEDS: PANTOPRAZOLE 40 MG TABLET PO SCH (10:16)
[2021-05-21] MEDS: APIXABAN 2.5 MG TABLET PO SCH ×2 (10:16→21:07)
[2021-05-21] MEDS: SODIUM ZIRCONIUM CYCLOSILICATE (LOKELMA) 5 GM PACKET PO SCH (10:16)
[2021-05-21] MEDS: ALLOPURINOL 100 MG TABLET (FP) PO SCH (10:17)
[2021-05-21] MEDS: SERTRALINE HCL 25 MG TABLET (FP) PO SCH (10:17)
[2021-05-21] MEDS: CHOLECALCIFEROL (VIT D3) 5000 UNITS (125 MCG) CAP PO SCH (10:17)
[2021-05-21] MEDS: MORPHINE SULFATE 2 MG/ML VIAL IVPUSH PRN ×2 (13:55→21:05)
[2021-05-21] MEDS ORDERED: PT OWN MED DRAWER 7, Y5N ONE ×2 (16:59→20:45)
[2021-05-21] MEDS: AMINO ACIDS 4.25%/D5W 1,000 ML IV SCH (21:04)
[2021-05-21] MEDS: ROSUVASTATIN CA 10 MG TABLET (FP) PO SCH (21:07)
[2021-05-21] MEDS: CHLORHEXIDINE GLUCONATE 4% CLEANSER FOR DECOLONIZATION TP SCH (21:07)
[2021-05-21] MEDS ORDERED: DEXMEDETOMIDINE IN 0.9 % NACL 200 MCG/50 ML EACH IVPB SCH (23:00)
[2021-05-22] MEDS ORDERED: DEXMEDETOMIDINE IN 0.9 % NACL 400 MCG/100 ML VIAL IVPB SCH ×3 (03:45→16:47)
[2021-05-22] MEDS: INSULIN SLIDING SCALE (NOVOLOG) 1 VIAL SQ SCH ×5 (06:14→23:00)
[2021-05-22] MEDS: GABAPENTIN 100 MG CAPSULE PO SCH ×3 (06:15→23:07)
[2021-05-22] MEDS: SODIUM BICARBONATE 650 MG TABLET PO SCH ×3 (06:15→23:07)
[2021-05-22 07:06] LABS: BASO % 0.2 % (0-2.0); EOS % 0.3 % (0-4.5); HEMATOCRIT 28.9 % (35.4-49); HEMOGLOBIN 9.9 GM/dL (11.7-16.9); LYMPH % 9.5 % (8-40); MCH 29.9 pg (25.7-33.7); MCHC 34.4 g/dl (32.0-35.9); MEAN PLT VOLUME 10.1 fl (7.5-11.1); MONO % 2.4 % (3.8-10.2); NEUT % 87.6 % (42.8-82.8); PLATELET COUNT 108 10^3/uL (134-434); RBC 3.32 M/mm3 (4.00-5.60); RDW 16.1 % (11.9-15.9); WHITE BLOOD COUNT 4.2 K/mm3 (4.0-10.0)
[2021-05-22 07:18] LABS: CHLORIDE 107 mmol/L (98-107); SODIUM 135 mmol/L (136-145)
[2021-05-22 07:22] LABS: ALBUMIN 2.1 g/dl (3.4-5.0); ANION GAP 8 MMOL/L (8-16); CALCIUM 7.8 mg/dL (8.5-10.1); CO2 20 mmol/L (21-32)
[2021-05-22 07:23] LABS: GLUCOSE,RANDOM 147 mg/dL (74-106); MAGNESIUM 3.2 mg/dL (1.8-2.4)
[2021-05-22 07:25] LABS: CREATININE 2.5 mg/dL (0.55-1.3); SGPT/ALT 21 U/L (13-61)
[2021-05-22 07:26] LABS: PHOSPHOROUS 4.7 mg/dL (2.5-4.9); SGOT/AST 30 U/L (15-37)
[2021-05-22 07:27] LABS: BILIRUBIN,TOTAL 0.6 mg/dL (0.2-1); LDH 514 U/L (87-246); TOT PROT 4.5 g/dl (6.4-8.2)
[2021-05-22 07:28] LABS: ALK PHOS 88 U/L (45-117)
[2021-05-22 07:40] LABS: BLOOD UREA NITROGEN 127.7 mg/dL (7-18)
[2021-05-22] MEDS: ALBUTEROL SO4 HFA INHALER IH SCH ×4 (08:00→20:00)
[2021-05-22] MEDS ORDERED: CALCIUM GLUCONATE 10% - 1,000 MG/10 ML VIAL IVPB ONE (08:28)
[2021-05-22] MEDS: LORATADINE 10 MG TABLET PO SCH (10:00)
[2021-05-22] MEDS: MUPIROCIN 2% TOPICAL OINTMENT FOR DECOLONIZATION NS SCH ×2 (10:00→23:07)
[2021-05-22] MEDS ORDERED: PT OWN MED DRAWER 7, Y5N ONE (10:37)
[2021-05-22] MEDS: MECLIZINE HCL 25 MG TABLET (FP) PO SCH ×2 (10:59→23:07)
[2021-05-22] MEDS ORDERED: SODIUM CHLORIDE 0.45% 1,000 ML IV SCH (11:00)
[2021-05-22] MEDS: MORPHINE SULFATE 2 MG/ML VIAL IVPUSH PRN ×2 (11:00→23:06)
[2021-05-22] MEDS: TOLTERODINE TARTRATE LA 2 MG CAP.SR.24H PO SCH (12:19)
[2021-05-22] MEDS: LIPASE/PROTEASE/AMYLASE 36,000 UNIT CAPSULE PO SCH ×3 (12:19→18:22)
[2021-05-22] MEDS: APIXABAN 2.5 MG TABLET PO SCH ×2 (12:19→23:07)
[2021-05-22] MEDS: DEXAMETHASONE SOD PHOSPHATE 10 MG/1 ML VIAL IVPUSH SCH (12:19)
[2021-05-22] MEDS: BUDESONIDE/FORMETEROL FUMARATE 160/4.5 mcg INHALER IH SCH ×2 (12:20→23:08)
[2021-05-22] MEDS: MEMANTINE HCL 5 MG TABLET (UD) PO SCH ×2 (12:20→23:07)
[2021-05-22] MEDS: PANTOPRAZOLE 40 MG TABLET PO SCH (12:20)
[2021-05-22] MEDS: ZINC SULFATE 220 MG CAPSULE (FP) PO SCH ×2 (12:20→23:07)
[2021-05-22] MEDS: SODIUM ZIRCONIUM CYCLOSILICATE (LOKELMA) 10 GM PACKET PO SCH (12:20)
[2021-05-22] MEDS: ASCORBIC ACID 500 MG TABLET (FP) PO SCH ×2 (12:21→23:08)
[2021-05-22] MEDS: ALLOPURINOL 100 MG TABLET (FP) PO SCH (12:21)
[2021-05-22] MEDS: CHOLECALCIFEROL (VIT D3) 5000 UNITS (125 MCG) CAP PO SCH (12:21)
[2021-05-22] MEDS: TRIAMCINOLONE ACET 0.1% CREAM 80 GM TUBE TP SCH (12:21)
[2021-05-22] MEDS: SERTRALINE HCL 25 MG TABLET (FP) PO SCH (12:21)
[2021-05-22] MEDS: TAMSULOSIN HCL 0.4 MG CAP PO SCH (12:22)
[2021-05-22] MEDS: AMINO ACIDS 4.25%/D5W 1,000 ML IV SCH (15:08)
[2021-05-22] MEDS: ROSUVASTATIN CA 10 MG TABLET (FP) PO SCH (23:07)
[2021-05-22] MEDS: CHLORHEXIDINE GLUCONATE 4% CLEANSER FOR DECOLONIZATION TP SCH (23:07)
[2021-05-23] MEDS: ALBUTEROL SO4 HFA INHALER IH SCH ×4 (00:19→12:11)
[2021-05-23] MEDS: SODIUM BICARBONATE 650 MG TABLET PO SCH ×2 (06:00→16:33)
[2021-05-23] MEDS: INSULIN SLIDING SCALE (NOVOLOG) 1 VIAL SQ SCH ×3 (06:00→16:47)
[2021-05-23] MEDS: GABAPENTIN 100 MG CAPSULE PO SCH ×2 (06:00→16:33)
[2021-05-23 06:35] LABS: BASO % 0.3 % (0-2.0); EOS % 0.1 % (0-4.5); HEMATOCRIT 30.7 % (35.4-49); HEMOGLOBIN 10.4 GM/dL (11.7-16.9); LYMPH % 11.6 % (8-40); MCH 29.6 pg (25.7-33.7); MCHC 33.9 g/dl (32.0-35.9); MEAN CELL VOLUME 87.2 fl (80-96); MEAN PLT VOLUME 10.1 fl (7.5-11.1); MONO % 2.3 % (3.8-10.2); NEUT % 85.7 % (42.8-82.8); PLATELET COUNT 92 10^3/uL (134-434); RBC 3.52 M/mm3 (4.00-5.60); RDW 16.3 % (11.9-15.9)
[2021-05-23 06:56] LABS: CHLORIDE 109 mmol/L (98-107); SODIUM 136 mmol/L (136-145)
[2021-05-23 06:59] LABS: ALBUMIN 2.1 g/dl (3.4-5.0); ANION GAP 9 MMOL/L (8-16); CALCIUM 7.7 mg/dL (8.5-10.1); CO2 19 mmol/L (21-32); GLUCOSE,RANDOM 175 mg/dL (74-106); MAGNESIUM 3.1 mg/dL (1.8-2.4)
[2021-05-23 07:02] LABS: CREATININE 2.5 mg/dL (0.55-1.3); SGOT/AST 29 U/L (15-37); SGPT/ALT 19 U/L (13-61)
[2021-05-23 07:03] LABS: PHOSPHOROUS 4.7 mg/dL (2.5-4.9)
[2021-05-23 07:04] LABS: BILIRUBIN,TOTAL 0.7 mg/dL (0.2-1); TOT PROT 4.8 g/dl (6.4-8.2)
[2021-05-23 07:05] LABS: ALK PHOS 95 U/L (45-117)
[2021-05-23 07:08] LABS: LDH 519 U/L (87-246)
[2021-05-23 07:15] LABS: BLOOD UREA NITROGEN 135.1 mg/dL (7-18)
[2021-05-23] MEDS ORDERED: SODIUM BICARBONATE 8.4% 50 MEQ/50 ML DISP.SYRIN IVPUSH ONE (07:17)
[2021-05-23 08:56] LABS: ARTERIAL BLD GAS O2 SATURATION 94.6 % (95-98); ARTERIAL BLOOD GAS BASE EXCESS -8.2 mmol/L (-2-2); ARTERIAL BLOOD GAS PO2 72.8 mmHg (80-100); ARTERIAL BLOOD GAS pH 7.376 (7.350-7.450)
[2021-05-23 08:58] LABS: ALLENS TEST POSITIVE
[2021-05-23] MEDS: LIPASE/PROTEASE/AMYLASE 36,000 UNIT CAPSULE PO SCH ×3 (09:00→17:55)
[2021-05-23] MEDS: TAMSULOSIN HCL 0.4 MG CAP PO SCH (09:00)
[2021-05-23] MEDS: ZINC SULFATE 220 MG CAPSULE (FP) PO SCH (10:00)
[2021-05-23] MEDS: LORATADINE 10 MG TABLET PO SCH (10:00)
[2021-05-23] MEDS: BUDESONIDE/FORMETEROL FUMARATE 160/4.5 mcg INHALER IH SCH (10:00)
[2021-05-23] MEDS: MEMANTINE HCL 5 MG TABLET (UD) PO SCH (10:00)
[2021-05-23] MEDS: TOLTERODINE TARTRATE LA 2 MG CAP.SR.24H PO SCH (10:00)
[2021-05-23] MEDS: APIXABAN 2.5 MG TABLET PO SCH (10:10)
[2021-05-23] MEDS: MUPIROCIN 2% TOPICAL OINTMENT FOR DECOLONIZATION NS SCH (10:10)
[2021-05-23] MEDS: DEXAMETHASONE SOD PHOSPHATE 10 MG/1 ML VIAL IVPUSH SCH (10:10)
[2021-05-23] MEDS: PANTOPRAZOLE 40 MG TABLET PO SCH (10:11)
[2021-05-23] MEDS: MECLIZINE HCL 25 MG TABLET (FP) PO SCH (10:11)
[2021-05-23] MEDS: SODIUM ZIRCONIUM CYCLOSILICATE (LOKELMA) 10 GM PACKET PO SCH ×2 (10:11→16:40)
[2021-05-23] MEDS: ASCORBIC ACID 500 MG TABLET (FP) PO SCH (10:12)
[2021-05-23] MEDS: SERTRALINE HCL 25 MG TABLET (FP) PO SCH (10:12)
[2021-05-23] MEDS: ALLOPURINOL 100 MG TABLET (FP) PO SCH (10:13)
[2021-05-23] MEDS: AMINO ACIDS 4.25%/D5W 1,000 ML IV SCH (11:00)
[2021-05-23] MEDS ORDERED: RAPID SEQUENCE INTUBATION KIT NR ONE (11:12)
[2021-05-23] MEDS ORDERED: MIDAZOLAM HCL 5 MG/1 ML Single Dose Vial ONE (11:12)
[2021-05-23] MEDS ORDERED: PROPOFOL 1,000,000 MCG/100 ML VIAL ONE (11:13)
[2021-05-23] MEDS ORDERED: PROPOFOL 200 MG/20 ML VIAL IVPUSH ONE (11:29)
[2021-05-23] MEDS ORDERED: ROCURONIUM BROMIDE 50 MG/5 ML VIAL IV ONE ×2 (11:33→15:29)
[2021-05-23] MEDS ORDERED: FENTANYL NS IVPB 500 MCG/100 ML BAG IVPB ONE (11:33)
[2021-05-23] MEDS: FENTANYL NS IVPB 500 MCG/100 ML BAG IVPB SCH ×2 (11:40→16:00)
[2021-05-23] MEDS: PROPOFOL 1,000,000 MCG/100 ML VIAL IVPB SCH (11:40)
[2021-05-23] MEDS ORDERED: NOREPINEPHRINE BITARTRATE 4,000 MCG in DEXTROSE 5%-WATER - 496 ML IV SCH (13:15)
[2021-05-23 13:42] LABS: ARTERIAL BLD GAS O2 SATURATION 99.3 % (95-98); ARTERIAL BLOOD GAS BASE EXCESS -9.9 mmol/L (-2-2); ARTERIAL BLOOD GAS PO2 252.1 mmHg (80-100)
[2021-05-23 13:44] LABS: ALLENS TEST POSITIVE
[2021-05-23 13:45] LABS: PT'S TEMP 94.3; VENT MODE A/C; VENT RATE 24
[2021-05-23 13:48] LABS: ARTERIAL BLOOD GAS pH 7.123 (7.350-7.450)
[2021-05-23] MEDS ORDERED: ROCURONIUM BROMIDE 100 MG/10 ML VIAL ONE (13:55)
[2021-05-23 14:22] LABS: HEMATOCRIT 34.6 % (35.4-49); HEMOGLOBIN 11.3 GM/dL (11.7-16.9); MCHC 32.6 g/dl (32.0-35.9); MEAN CELL VOLUME 89.1 fl (80-96); MEAN PLT VOLUME 10.1 fl (7.5-11.1); PLATELET COUNT 160 10^3/uL (134-434); RBC 3.88 M/mm3 (4.00-5.60); RDW 16.9 % (11.9-15.9); WHITE BLOOD COUNT 15.5 K/mm3 (4.0-10.0)
[2021-05-23] MEDS: CHOLECALCIFEROL (VIT D3) 5000 UNITS (125 MCG) CAP PO SCH (16:35)
[2021-05-23] MEDS ORDERED: VASOPRESSIN 40 UNITS/100 ML BAG IV SCH (16:45)
[2021-05-23] MEDS ORDERED: VANCOMYCIN 1 GM in D5W (PRE-DOCKED) 1,000 MG/250 ML IVPB ONE (16:47)
[2021-05-23] MEDS ORDERED: PIPERACILLIN/TAZOB 3.375 GM 3.375 GM in DEXTROSE 5%-WATER - 50 ML IVPB SCH (17:00)
[2021-05-23] MEDS ORDERED: DEXTROSE 5%-WATER - 50 ML IVPB ONE (17:07)
[2021-05-23] MEDS ORDERED: PIPERACILLIN/TAZOBACTAM 3.375 GM VIAL IVPB ONE (17:07)
[2021-05-23] MEDS: VASOPRESSIN 40 UNITS/100 ML BAG IV SCH (17:09)
[2021-05-23] MEDS: PIPERACILLIN/TAZOB 3.375 GM 3.375 GM in DEXTROSE 5%-WATER - 50 ML IVPB SCH (17:55)
[2021-05-23] MEDS ORDERED: NOREPINEPHRINE BITARTRATE 4 MG/4 ML ML IV ONE (19:18)
[2021-05-23 20:30] LABS: ARTERIAL BLD GAS O2 SATURATION 91.6 % (95-98); ARTERIAL BLOOD GAS BASE EXCESS -11.1 mmol/L (-2-2); ARTERIAL BLOOD GAS PO2 69.7 mmHg (80-100); ARTERIAL BLOOD GAS pH 7.257 (7.350-7.450)
[2021-05-23 20:32] LABS: VENT MODE A/C; VENT RATE 26
[2021-05-24] MEDS: NOREPINEPHRINE D5W PREMIX 16,000 MCG/500 ML BAG IVPB SCH ×2 (00:35→20:19)
[2021-05-24] MEDS: MUPIROCIN 2% TOPICAL OINTMENT FOR DECOLONIZATION NS SCH ×2 (00:38→10:12)
[2021-05-24] MEDS: APIXABAN 2.5 MG TABLET NGT SCH ×3 (00:41→21:01)
[2021-05-24] MEDS: ROSUVASTATIN CA 10 MG TABLET (FP) PO SCH ×2 (00:41→21:05)
[2021-05-24] MEDS: CHOLECALCIFEROL (VIT D3) 1,000 UNIT (25 MCG) TABLET GT SCH ×2 (00:41→10:06)
[2021-05-24] MEDS: INSULIN SLIDING SCALE (NOVOLOG) 1 VIAL SQ SCH ×5 (01:36→21:29)
[2021-05-24] MEDS: CHLORHEXIDINE GLUCONATE 4% CLEANSER FOR DECOLONIZATION TP SCH ×2 (01:37→21:05)
[2021-05-24] MEDS ORDERED: PIPERACILLIN/TAZOBACTAM 3.375 GM VIAL IVPB ONE (08:28)
[2021-05-24] MEDS ORDERED: DEXTROSE 5%-WATER - 50 ML IVPB ONE ×3 (08:29→20:15)
[2021-05-24] MEDS: PIPERACILLIN/TAZOB 3.375 GM 3.375 GM in DEXTROSE 5%-WATER - 50 ML IVPB SCH (08:37)
[2021-05-24] MEDS: SODIUM BICARBONATE 650 MG TABLET GT SCH ×4 (08:40→21:00)
[2021-05-24] MEDS: SACUBITRIL/VALSARTAN 24 MG-26 MG TABLET PO SCH (10:06)
[2021-05-24] MEDS: PANTOPRAZOLE SODIUM 40 MG VIAL IVPUSH SCH (10:06)
[2021-05-24] MEDS: ALLOPURINOL 100 MG TABLET (FP) GT SCH (10:08)
[2021-05-24] MEDS: ASCORBIC ACID 500 MG TABLET (FP) GT SCH ×2 (10:08→21:00)
[2021-05-24] MEDS: ZINC SULFATE 220 MG CAPSULE (FP) GT SCH ×2 (10:08→21:00)
[2021-05-24] MEDS: PROPOFOL 1,000,000 MCG/100 ML VIAL IVPB SCH ×3 (10:09→16:07)
[2021-05-24] MEDS: DEXAMETHASONE SOD PHOSPHATE 10 MG/1 ML VIAL IVPUSH SCH (10:10)
[2021-05-24] MEDS ORDERED: PT OWN MED DRAWER 7, Y5N ONE ×2 (10:11→11:28)
[2021-05-24] MEDS: LIPASE/PROTEASE/AMYLASE 36,000 UNIT CAPSULE PO SCH ×3 (10:12→17:50)
[2021-05-24 10:33] LABS: ARTERIAL BLD GAS O2 SATURATION 94.7 % (95-98); ARTERIAL BLOOD GAS BASE EXCESS -9.1 mmol/L (-2-2); ARTERIAL BLOOD GAS PO2 81.1 mmHg (80-100); ARTERIAL BLOOD GAS pH 7.279 (7.350-7.450)
[2021-05-24 11:12] LABS: BASO % 0.4 % (0-2.0); EOS % 1.5 % (0-4.5); HEMATOCRIT 30.5 % (35.4-49); HEMOGLOBIN 10.1 GM/dL (11.7-16.9); LYMPH % 21.5 % (8-40); MCH 29.3 pg (25.7-33.7); MEAN CELL VOLUME 88.7 fl (80-96); MONO % 1.3 % (3.8-10.2); NEUT % 75.3 % (42.8-82.8); PLATELET COUNT 117 10^3/uL (134-434); RBC 3.43 M/mm3 (4.00-5.60); RDW 16.9 % (11.9-15.9)
[2021-05-24] MEDS: AMINO ACIDS 4.25%/D5W 1,000 ML IV SCH (11:30)
[2021-05-24 11:34] LABS: CHLORIDE 102 mmol/L (98-107); SODIUM 132 mmol/L (136-145)
[2021-05-24 11:37] LABS: ANION GAP 11 MMOL/L (8-16); CALCIUM 7.7 mg/dL (8.5-10.1); CO2 19 mmol/L (21-32); GLUCOSE,RANDOM 206 mg/dL (74-106)
[2021-05-24 11:40] LABS: CREATININE 3.4 mg/dL (0.55-1.3); PHOSPHOROUS 5.7 mg/dL (2.5-4.9); SGOT/AST 18 U/L (15-37); SGPT/ALT 15 U/L (13-61)
[2021-05-24 11:42] LABS: TOT PROT 4.6 g/dl (6.4-8.2)
[2021-05-24 11:43] LABS: ALK PHOS 80 U/L (45-117)
[2021-05-24 11:57] LABS: BLOOD UREA NITROGEN 149.2 mg/dL (7-18)
[2021-05-24] MEDS: SODIUM ZIRCONIUM CYCLOSILICATE (LOKELMA) 10 GM PACKET GT SCH (12:33)
[2021-05-24] MEDS ORDERED: PIPERACILLIN/TAZOBACTAM 2.25 GM VIAL IVPB ONE ×2 (14:50→20:15)
[2021-05-24] MEDS: PIPERACILLIN/TAZOB 2.25 GM 2.25 GM in DEXTROSE 5%-WATER - 50 ML IVPB SCH ×2 (15:01→20:19)
[2021-05-24] MEDS ORDERED: AMINO ACIDS 4.25%/D5W 1,000 ML IV SCH (15:29)
[2021-05-24] MEDS ORDERED: FENTANYL NS IVPB 500 MCG/100 ML BAG IVPB ONE (16:09)
[2021-05-24] MEDS: VASOPRESSIN 40 UNITS/100 ML BAG IV SCH (17:49)
[2021-05-24 18:37] LABS: TRIGLYCERIDES 155 mg/dL (0-150)
[2021-05-24 18:38] LABS: CHOLESTEROL < 50 mg/dL (50-200)
[2021-05-24 18:39] LABS: LDL CHOLESTEROL (ONLY SJRH) 17 mg/dL (5-100)
[2021-05-24 18:40] LABS: HDL CHOLESTEROL 18 mg/dL (40-60)
[2021-05-24 23:59] VITALS: BMI 31.4
[2021-05-25] MEDS ORDERED: PT OWN MED DRAWER 7, Y5N ONE ×2 (01:27→11:55)
[2021-05-25] MEDS: PIPERACILLIN/TAZOB 2.25 GM 2.25 GM in DEXTROSE 5%-WATER - 50 ML IVPB SCH ×4 (02:15→21:49)
[2021-05-25] MEDS ORDERED: FENTANYL NS IVPB 500 MCG/100 ML BAG IVPB ONE ×2 (02:49→11:38)
[2021-05-25] MEDS ORDERED: DEXTROSE 5%-WATER - 50 ML IVPB ONE ×4 (06:56→20:12)
[2021-05-25] MEDS ORDERED: PIPERACILLIN/TAZOBACTAM 2.25 GM VIAL IVPB ONE ×4 (06:56→20:11)
[2021-05-25] MEDS: SODIUM BICARBONATE 650 MG TABLET GT SCH ×3 (06:58→22:06)
[2021-05-25 06:59] LABS: BASO % 0.4 % (0-2.0); EOS % 1.3 % (0-4.5); HEMATOCRIT 29.8 % (35.4-49); LYMPH % 27.1 % (8-40); MCH 29.3 pg (25.7-33.7); MCHC 33.4 g/dl (32.0-35.9); MEAN CELL VOLUME 87.7 fl (80-96); MEAN PLT VOLUME 8.9 fl (7.5-11.1); MONO % 1.9 % (3.8-10.2); NEUT % 69.3 % (42.8-82.8); PLATELET COUNT 106 10^3/uL (134-434); RDW 17.2 % (11.9-15.9); WHITE BLOOD COUNT 14.1 K/mm3 (4.0-10.0)
[2021-05-25] MEDS: INSULIN SLIDING SCALE (NOVOLOG) 1 VIAL SQ SCH ×4 (06:59→22:57)
[2021-05-25 07:16] LABS: CHLORIDE 99 mmol/L (98-107); SODIUM 129 mmol/L (136-145)
[2021-05-25 07:19] LABS: ALBUMIN 2.1 g/dl (3.4-5.0); ANION GAP 13 MMOL/L (8-16); CALCIUM 7.1 mg/dL (8.5-10.1); CO2 18 mmol/L (21-32)
[2021-05-25 07:20] LABS: GLUCOSE,RANDOM 185 mg/dL (74-106)
[2021-05-25 07:22] LABS: CREATININE 3.8 mg/dL (0.55-1.3); PHOSPHOROUS 6.1 mg/dL (2.5-4.9); SGOT/AST 20 U/L (15-37); SGPT/ALT 15 U/L (13-61)
[2021-05-25 07:23] LABS: LDH 384 U/L (87-246)
[2021-05-25 07:24] LABS: BILIRUBIN,TOTAL 0.8 mg/dL (0.2-1); TOT PROT 5.5 g/dl (6.4-8.2)
[2021-05-25 07:25] LABS: ALK PHOS 72 U/L (45-117)
[2021-05-25] MEDS: LIPASE/PROTEASE/AMYLASE 36,000 UNIT CAPSULE PO SCH ×3 (08:19→17:07)
[2021-05-25] MEDS: ASCORBIC ACID 500 MG TABLET (FP) GT SCH ×2 (09:28→22:06)
[2021-05-25] MEDS: DEXAMETHASONE SOD PHOSPHATE 10 MG/1 ML VIAL IVPUSH SCH (09:28)
[2021-05-25] MEDS: PANTOPRAZOLE SODIUM 40 MG VIAL IVPUSH SCH (09:28)
[2021-05-25] MEDS: APIXABAN 2.5 MG TABLET NGT SCH ×2 (09:28→22:07)
[2021-05-25] MEDS: ALLOPURINOL 100 MG TABLET (FP) GT SCH (09:28)
[2021-05-25] MEDS: ZINC SULFATE 220 MG CAPSULE (FP) GT SCH ×2 (09:28→22:06)
[2021-05-25] MEDS: CHOLECALCIFEROL (VIT D3) 1,000 UNIT (25 MCG) TABLET GT SCH (09:28)
[2021-05-25] MEDS: SODIUM ZIRCONIUM CYCLOSILICATE (LOKELMA) 10 GM PACKET GT SCH (09:29)
[2021-05-25] MEDS ORDERED: VANCOMYCIN 1 GRAM (PRE-DOCKED) 1,000 MG/250 ML BAG IVPB ONE (11:00)
[2021-05-25] MEDS: PROPOFOL 1,000,000 MCG/100 ML VIAL IVPB SCH ×2 (11:52→15:10)
[2021-05-25] MEDS: FENTANYL NS IVPB 500 MCG/100 ML BAG IVPB SCH ×3 (11:52→22:47)
[2021-05-25] MEDS: TRIAMCINOLONE ACET 0.1% CREAM 80 GM TUBE TP SCH (14:27)
[2021-05-25] MEDS: NOREPINEPHRINE D5W PREMIX 16,000 MCG/500 ML BAG IVPB SCH (21:48)
[2021-05-25] MEDS: CHLORHEXIDINE GLUCONATE 4% CLEANSER FOR DECOLONIZATION TP SCH (21:50)
[2021-05-25] MEDS: ROSUVASTATIN CA 10 MG TABLET (FP) PO SCH (22:06)
[2021-05-25] MEDS: VASOPRESSIN 40 UNITS/100 ML BAG IV SCH (22:07)
[2021-05-26] MEDS ORDERED: PIPERACILLIN/TAZOBACTAM 2.25 GM VIAL IVPB ONE ×4 (02:25→22:35)
[2021-05-26] MEDS ORDERED: DEXTROSE 5%-WATER - 50 ML IVPB ONE ×4 (02:25→22:35)
[2021-05-26 07:37] LABS: HEMATOCRIT 31.8 % (35.4-49); HEMOGLOBIN 10.6 GM/dL (11.7-16.9); MCH 29.1 pg (25.7-33.7); MCHC 33.3 g/dl (32.0-35.9); MEAN CELL VOLUME 87.4 fl (80-96); MEAN PLT VOLUME 9.8 fl (7.5-11.1); PLATELET COUNT 129 10^3/uL (134-434); RBC 3.64 M/mm3 (4.00-5.60); RDW 17.1 % (11.9-15.9); WHITE BLOOD COUNT 20.2 K/mm3 (4.0-10.0)
[2021-05-26 07:53] LABS: CHLORIDE 95 mmol/L (98-107); SODIUM 125 mmol/L (136-145)
[2021-05-26 07:55] LABS: CALCIUM 7.6 mg/dL (8.5-10.1)
[2021-05-26 07:56] LABS: ALBUMIN 2.1 g/dl (3.4-5.0); ANION GAP 13 MMOL/L (8-16); CO2 17 mmol/L (21-32); GLUCOSE,RANDOM 136 mg/dL (74-106)
[2021-05-26 07:59] LABS: CREATININE 4.6 mg/dL (0.55-1.3); PHOSPHOROUS 7.8 mg/dL (2.5-4.9); SGOT/AST 19 U/L (15-37); SGPT/ALT 16 U/L (13-61)
[2021-05-26 08:00] LABS: BILIRUBIN,TOTAL 0.8 mg/dL (0.2-1); TOT PROT 4.9 g/dl (6.4-8.2)
[2021-05-26] MEDS: LIPASE/PROTEASE/AMYLASE 36,000 UNIT CAPSULE PO SCH ×3 (08:00→17:40)
[2021-05-26 08:02] LABS: ALK PHOS 70 U/L (45-117)
[2021-05-26] MEDS: FENTANYL NS IVPB 500 MCG/100 ML BAG IVPB SCH ×4 (08:30→20:35)
[2021-05-26 08:33] LABS: BLOOD UREA NITROGEN 174.4 mg/dL (7-18)
[2021-05-26 08:47] LABS: ANISOCYTOSIS 0; MACROCYTOSIS 0; OVALOCYTE 2+; PLATELET ESTIMATE DECREASED; TEAR DROP CELLS 1+
[2021-05-26] MEDS ORDERED: PT OWN MED DRAWER 7, Y5N ONE (09:20)
[2021-05-26] MEDS: PIPERACILLIN/TAZOB 2.25 GM 2.25 GM in DEXTROSE 5%-WATER - 50 ML IVPB SCH ×3 (09:54→18:02)
[2021-05-26] MEDS: PANTOPRAZOLE SODIUM 40 MG VIAL IVPUSH SCH (09:56)
[2021-05-26] MEDS: ZINC SULFATE 220 MG CAPSULE (FP) GT SCH ×2 (09:56→22:39)
[2021-05-26] MEDS: SODIUM ZIRCONIUM CYCLOSILICATE (LOKELMA) 10 GM PACKET GT SCH (09:56)
[2021-05-26] MEDS: DEXAMETHASONE SOD PHOSPHATE 10 MG/1 ML VIAL IVPUSH SCH (09:56)
[2021-05-26] MEDS: APIXABAN 2.5 MG TABLET NGT SCH (09:56)
[2021-05-26] MEDS: ASCORBIC ACID 500 MG TABLET (FP) GT SCH ×2 (09:57→22:39)
[2021-05-26] MEDS: ALLOPURINOL 100 MG TABLET (FP) GT SCH (09:57)
[2021-05-26] MEDS: CHOLECALCIFEROL (VIT D3) 1,000 UNIT (25 MCG) TABLET GT SCH (09:57)
[2021-05-26] MEDS: INSULIN SLIDING SCALE (NOVOLOG) 1 VIAL SQ SCH ×3 (10:54→23:02)
[2021-05-26] MEDS: PROPOFOL 1,000,000 MCG/100 ML VIAL IVPB SCH ×2 (11:30→17:36)
[2021-05-26] MEDS: SODIUM BICARBONATE 650 MG TABLET GT SCH ×2 (13:23→22:39)
[2021-05-26] MEDS: NOREPINEPHRINE D5W PREMIX 16,000 MCG/500 ML BAG IVPB SCH (13:24)
[2021-05-26] MEDS: VASOPRESSIN 40 UNITS/100 ML BAG IV SCH (16:45)
[2021-05-26] MEDS: CHLORHEXIDINE GLUCONATE 4% CLEANSER FOR DECOLONIZATION TP SCH (22:39)
[2021-05-26] MEDS: ROSUVASTATIN CA 10 MG TABLET (FP) PO SCH (22:39)
[2021-05-27] MEDS: PIPERACILLIN/TAZOB 2.25 GM 2.25 GM in DEXTROSE 5%-WATER - 50 ML IVPB SCH ×3 (01:38→19:05)
[2021-05-27] MEDS: FENTANYL NS IVPB 500 MCG/100 ML BAG IVPB SCH ×2 (01:38→21:52)
[2021-05-27] MEDS: PROPOFOL 1,000,000 MCG/100 ML VIAL IVPB SCH ×2 (01:39→11:30)
[2021-05-27] MEDS: INSULIN SLIDING SCALE (NOVOLOG) 1 VIAL SQ SCH ×4 (06:41→21:54)
[2021-05-27 06:59] LABS: HEMOGLOBIN 11.6 GM/dL (11.7-16.9); MEAN CELL VOLUME 87.9 fl (80-96); MEAN PLT VOLUME 10.3 fl (7.5-11.1); PLATELET COUNT 170 10^3/uL (134-434); RBC 3.99 M/mm3 (4.00-5.60); RDW 16.8 % (11.9-15.9); WHITE BLOOD COUNT 29.6 K/mm3 (4.0-10.0)
[2021-05-27] MEDS: SODIUM BICARBONATE 650 MG TABLET GT SCH ×3 (06:59→21:49)
[2021-05-27 07:27] LABS: CHLORIDE 91 mmol/L (98-107); SODIUM 122 mmol/L (136-145)
[2021-05-27 07:30] LABS: ALBUMIN 2.1 g/dl (3.4-5.0); CALCIUM 7.5 mg/dL (8.5-10.1); CO2 15 mmol/L (21-32); GLUCOSE,RANDOM 141 mg/dL (74-106)
[2021-05-27 07:33] LABS: CREATININE 5.7 mg/dL (0.55-1.3); SGPT/ALT 20 U/L (13-61)
[2021-05-27 07:34] LABS: SGOT/AST 46 U/L (15-37)
[2021-05-27 07:35] LABS: BILIRUBIN,TOTAL 0.8 mg/dL (0.2-1)
[2021-05-27 07:36] LABS: ALK PHOS 69 U/L (45-117)
[2021-05-27] MEDS ORDERED: DEXTROSE 5%-WATER - 50 ML IVPB ONE ×2 (08:13→15:55)
[2021-05-27] MEDS ORDERED: PIPERACILLIN/TAZOBACTAM 2.25 GM VIAL IVPB ONE ×2 (08:13→15:54)
[2021-05-27 08:51] LABS: ANISOCYTOSIS 1+; MACROCYTOSIS 1+; PLATELET ESTIMATE NORMAL; TEAR DROP CELLS 1+
[2021-05-27] MEDS: LIPASE/PROTEASE/AMYLASE 36,000 UNIT CAPSULE PO SCH ×3 (09:13→17:51)
[2021-05-27 09:39] LABS: ANION GAP 15 MMOL/L (8-16); BLOOD UREA NITROGEN 183.4 mg/dL (7-18)
[2021-05-27] MEDS ORDERED: SODIUM CHLORIDE 250 ML IV PRN (09:42)
[2021-05-27] MEDS: DEXAMETHASONE SOD PHOSPHATE 10 MG/1 ML VIAL IVPUSH SCH (10:39)
[2021-05-27] MEDS: SODIUM ZIRCONIUM CYCLOSILICATE (LOKELMA) 10 GM PACKET GT SCH (10:39)
[2021-05-27] MEDS: CHLORHEXIDINE GLUCONATE 0.12% 15ML CUP MM SCH ×2 (10:39→21:49)
[2021-05-27] MEDS: PANTOPRAZOLE SODIUM 40 MG VIAL IVPUSH SCH (10:39)
[2021-05-27] MEDS: ZINC SULFATE 220 MG CAPSULE (FP) GT SCH ×2 (10:40→21:49)
[2021-05-27] MEDS: ASCORBIC ACID 500 MG TABLET (FP) GT SCH ×2 (10:40→21:49)
[2021-05-27] MEDS: CHOLECALCIFEROL (VIT D3) 1,000 UNIT (25 MCG) TABLET GT SCH (10:40)
[2021-05-27] MEDS ORDERED: CALCIUM GLUCONATE 10% - 1,000 MG/10 ML VIAL IVPUSH ONE (11:45)
[2021-05-27] MEDS ORDERED: DEXTROSE 50%-WATER - 25 GM/50 ML VIAL IVPUSH ONE (11:45)
[2021-05-27] MEDS ORDERED: INSULIN REGULAR HUMAN 100 UNITS/ML *VIAL IVPUSH ONE (11:45)
[2021-05-27] MEDS: ALLOPURINOL 100 MG TABLET (FP) GT SCH (13:46)
[2021-05-27] MEDS: TRIAMCINOLONE ACET 0.1% CREAM 80 GM TUBE TP SCH (13:46)
[2021-05-27] MEDS: HYDROCORTISONE SOD SUCCINATE 100 MG/2 ML VIAL IVPB SCH ×2 (14:06→19:05)
[2021-05-27] MEDS: FLUDROCORTISONE ACETATE 0.1 MG TABLET (FP) PO SCH (14:06)
[2021-05-27] MEDS ORDERED: DEXTROSE 50%-WATER 25 GM/50 ML DISP.SYRIN ONE (14:09)
[2021-05-27] MEDS: PHENYLEPHRINE NS PREMIX 50,000 MCG/500 ML BAG CVP SCH (16:00)
[2021-05-27] MEDS: AMINO ACIDS/PROTEIN HYDROLYS 30 ML LIQUID.PKT PO SCH (17:51)
[2021-05-27] MEDS: CHLORHEXIDINE GLUCONATE 4% CLEANSER FOR DECOLONIZATION TP SCH (21:52)
[2021-05-28] MEDS ORDERED: DEXTROSE 5%-WATER - 50 ML IVPB ONE ×2 (01:27→08:38)
[2021-05-28] MEDS ORDERED: PIPERACILLIN/TAZOBACTAM 2.25 GM VIAL IVPB ONE ×2 (01:27→08:38)
[2021-05-28] MEDS: HYDROCORTISONE SOD SUCCINATE 100 MG/2 ML VIAL IVPB SCH ×2 (02:33→09:46)
[2021-05-28] MEDS: NOREPINEPHRINE D5W PREMIX 16,000 MCG/500 ML BAG IVPB SCH ×2 (02:33→03:09)
[2021-05-28] MEDS: PIPERACILLIN/TAZOB 2.25 GM 2.25 GM in DEXTROSE 5%-WATER - 50 ML IVPB SCH ×2 (02:33→09:45)
[2021-05-28] MEDS: PHENYLEPHRINE NS PREMIX 50,000 MCG/500 ML BAG CVP SCH ×2 (02:34→12:37)
[2021-05-28] MEDS: PROPOFOL 1,000,000 MCG/100 ML VIAL IVPB SCH ×2 (02:38→12:36)
[2021-05-28] MEDS: FENTANYL NS IVPB 500 MCG/100 ML BAG IVPB SCH (02:39)
[2021-05-28] MEDS: APIXABAN 2.5 MG TABLET NGT SCH (03:09)
[2021-05-28] MEDS: INSULIN SLIDING SCALE (NOVOLOG) 1 VIAL SQ SCH ×2 (06:36→11:30)
[2021-05-28] MEDS: SODIUM BICARBONATE 650 MG TABLET GT SCH (06:38)
[2021-05-28 06:47] LABS: HEMATOCRIT 35.4 % (35.4-49); HEMOGLOBIN 11.5 GM/dL (11.7-16.9); MCHC 32.5 g/dl (32.0-35.9); MEAN CELL VOLUME 89.2 fl (80-96); MEAN PLT VOLUME 9.5 fl (7.5-11.1); PLATELET COUNT 151 10^3/uL (134-434); RBC 3.97 M/mm3 (4.00-5.60); RDW 17.8 % (11.9-15.9)
[2021-05-28 06:51] LABS: WHITE BLOOD COUNT 33.4 K/mm3 (4.0-10.0)
[2021-05-28 07:08] LABS: CHLORIDE 90 mmol/L (98-107); SODIUM 123 mmol/L (136-145)
[2021-05-28 07:12] LABS: ALBUMIN 2.1 g/dl (3.4-5.0); CALCIUM 7.4 mg/dL (8.5-10.1); CO2 14 mmol/L (21-32); GLUCOSE,RANDOM 235 mg/dL (74-106); MAGNESIUM 2.9 mg/dL (1.8-2.4)
[2021-05-28 07:14] LABS: SGPT/ALT 26 U/L (13-61)
[2021-05-28 07:15] LABS: CREATININE 6.2 mg/dL (0.55-1.3); SGOT/AST 53 U/L (15-37)
[2021-05-28 07:16] LABS: BILIRUBIN,TOTAL 0.8 mg/dL (0.2-1); TOT PROT 4.9 g/dl (6.4-8.2)
[2021-05-28 07:17] LABS: ALK PHOS 56 U/L (45-117)
[2021-05-28] MEDS ORDERED: SODIUM CHLORIDE 250 ML IV PRN (07:54)
[2021-05-28 08:22] LABS: ANION GAP 19 MMOL/L (8-16); BLOOD UREA NITROGEN 162.6 mg/dL (7-18); PHOSPHOROUS 9.5 mg/dL (2.5-4.9)
[2021-05-28] MEDS ORDERED: DEXTROSE 50%-WATER - 25 GM/50 ML VIAL IVPUSH ONE (08:48)
[2021-05-28] MEDS ORDERED: CALCIUM GLUCONATE IN NACL 1 GM/50 ML BAG IVPB ONE (08:48)
[2021-05-28] MEDS ORDERED: INSULIN REGULAR HUMAN 100 UNITS/ML *VIAL IVPUSH ONE (08:49)
[2021-05-28 09:09] LABS: HELMET CELLS 0; HOWELL-JOLLY BODIES 0; MACROCYTOSIS 0; OVALOCYTE 0; PLATELET ESTIMATE DECREASED; ROULEAU 0; SICKELED CELLS 0; TARGET CELLS 0; TEAR DROP CELLS 0; TOXIC GRANULATION 0
[2021-05-28 09:11] LABS: ANISOCYTOSIS 1+
[2021-05-28] MEDS: SODIUM ZIRCONIUM CYCLOSILICATE (LOKELMA) 10 GM PACKET GT SCH (09:45)
[2021-05-28] MEDS: LIPASE/PROTEASE/AMYLASE 36,000 UNIT CAPSULE PO SCH ×2 (09:45→12:11)
[2021-05-28] MEDS: CHLORHEXIDINE GLUCONATE 0.12% 15ML CUP MM SCH (09:45)
[2021-05-28] MEDS: AMINO ACIDS/PROTEIN HYDROLYS 30 ML LIQUID.PKT PO SCH (09:46)
[2021-05-28] MEDS: ASCORBIC ACID 500 MG TABLET (FP) GT SCH (09:47)
[2021-05-28] MEDS: CHOLECALCIFEROL (VIT D3) 1,000 UNIT (25 MCG) TABLET GT SCH (09:48)
[2021-05-28] MEDS: SODIUM BICARBONATE 8.4% 50 MEQ/50 ML VIAL IV SCH ×2 (10:01→10:28)
[2021-05-28] MEDS: ZINC SULFATE 220 MG CAPSULE (FP) GT SCH (10:03)
[2021-05-28] MEDS: ALLOPURINOL 100 MG TABLET (FP) GT SCH (10:03)
[2021-05-28] MEDS: PANTOPRAZOLE SODIUM 40 MG VIAL IVPUSH SCH (10:04)
[2021-05-28] MEDS: FLUDROCORTISONE ACETATE 0.1 MG TABLET (FP) PO SCH (10:05)
[2021-05-28] MEDS ORDERED: DEXTROSE 50%-WATER 25 GM/50 ML DISP.SYRIN ONE (10:26)
[2021-05-28 10:45] LABS: HEMATOCRIT 36.6 % (35.4-49); HEMOGLOBIN 11.7 GM/dL (11.7-16.9); MCH 28.7 pg (25.7-33.7); MEAN CELL VOLUME 89.8 fl (80-96); MEAN PLT VOLUME 9.7 fl (7.5-11.1); PLATELET COUNT 163 10^3/uL (134-434); RBC 4.08 M/mm3 (4.00-5.60); RDW 17.6 % (11.9-15.9)
[2021-05-28 10:50] LABS: WHITE BLOOD COUNT 33.8 K/mm3 (4.0-10.0)
[2021-05-28 11:55] LABS: ANISOCYTOSIS 0; HELMET CELLS 0; HOWELL-JOLLY BODIES 0; MACROCYTOSIS 0; OVALOCYTE 0; ROULEAU 0; SICKELED CELLS 0; TARGET CELLS 0; TEAR DROP CELLS 0; TOXIC GRANULATION 0
[2021-05-28] MEDS ORDERED: HEPARIN NA (PORCINE) 5,000 UNITS/ML 1ML VIAL IVPUSH PRN ×2 (13:12)
[2021-05-28] MEDS ORDERED: MORPHINE SULFATE/0.9% NACL/PF 100 MG/100 ML BAG IVPB SCH (13:15)
[2021-05-28] MEDS ORDERED: HEPARIN - 25,000 UNIT in SODIUM CHLORIDE 495 ML IV SCH (13:15)
[2021-05-28 14:15] LABS: PLATELET ESTIMATE ADEQUATE
[2021-05-28 16:39] VITALS: TEMP 97.4
[2021-05-28 16:47] VITALS: BP 55/24; PULSE 83
== END 2021-05-28 19:15 | disposition expired | DRG 207 ==
LOC: JER 09:44 → JERBED 11:52 → J4S 23:03 → JICU 05-19 18:25
PROVIDERS: ADMIT Internal Medicine; ATTEND Internal Medicine
PROC: XW033H5 Introduction of Tocilizumab into Peripheral Vein, Percutaneous Approach, New Technology Group 5 (ICD-10-PCS; 2021-05-12)
PROC: 5A1955Z Respiratory Ventilation, Greater than 96 Consecutive Hours (ICD-10-PCS; principal; 2021-05-23)
PROC: 0BH17EZ Insertion of Endotracheal Airway into Trachea, Via Natural or Artificial Opening (ICD-10-PCS; 2021-05-23)
PROC: 05H533Z Insertion of Infusion Device into Right Subclavian Vein, Percutaneous Approach (ICD-10-PCS; 2021-05-23)
PROC: B546ZZA Ultrasonography of Right Subclavian Vein, Guidance (ICD-10-PCS; 2021-05-23)
PROC: 05HN33Z Insertion of Infusion Device into Left Internal Jugular Vein, Percutaneous Approach (ICD-10-PCS; 2021-05-27)
PROC: B544ZZA Ultrasonography of Left Jugular Veins, Guidance (ICD-10-PCS; 2021-05-27)
PROC: 5A12012 Performance of Cardiac Output, Single, Manual (ICD-10-PCS; 2021-05-28)
DX: U07.1 COVID-19 (principal); J12.82 Pneumonia due to coronavirus disease 2019; J80 Acute respiratory distress syndrome; I50.23 Acute on chronic systolic (congestive) heart failure; N17.9 Acute kidney failure, unspecified; I13.0 Hypertensive heart and chronic kidney disease with heart failure and stage 1 through stage 4 chronic kidney disease, or unspecified chronic kidney disease; D61.818 Other pancytopenia; I47.2 Ventricular tachycardia; I24.8 Other forms of acute ischemic heart disease; E87.1 Hypo-osmolality and hyponatremia; N18.32 Chronic kidney disease, stage 3b; D70.9 Neutropenia, unspecified; E11.22 Type 2 diabetes mellitus with diabetic chronic kidney disease; E11.40 Type 2 diabetes mellitus with diabetic neuropathy, unspecified; I48.0 Paroxysmal atrial fibrillation; I25.10 Atherosclerotic heart disease of native coronary artery without angina pectoris; F41.8 Other specified anxiety disorders; I46.9 Cardiac arrest, cause unspecified; R00.1 Bradycardia, unspecified; Z98.61 Coronary angioplasty status; I95.9 Hypotension, unspecified; E78.5 Hyperlipidemia, unspecified; E87.5 Hyperkalemia; N40.0 Benign prostatic hyperplasia without lower urinary tract symptoms; E66.9 Obesity, unspecified; Z68.35 Body mass index [BMI] 35.0-35.9, adult
CPT/HCPCS: 31500; 36415; 36600; 71045-TC-FY; 71250-TC; 76775-TC; 80053; 80061; 80162; 81003; 82248; 82436; 82550; 82570; 82728; 82803; 82962; 83036; 83605; 83615; 83735; 83880; 84100; 84133; 84300; 84439; 84443; 84484; 85025; 85027; 85379; 85610; 85730; 86140; 86480; 86706; 86803; 86850; 86900; 86901; 87040; 87070; 87077; 87086; 87186; 87205; 87340; 87517; 87804; 87899; 93005; 93010; 94002; 99285-25; C9803; G0480; J0131; J1100; J1644; J3262; J3490; U0003; U0005